=== PATIENT | male | born 1935 | race Caucasian/White ===

== ENCOUNTER → 2016-10-22 | Outpatient (CLI) | payer MEDICARE | END | disposition home or self-care (01) | LOC: PCVCCLINIC 11:25 | PROVIDERS: ATTEND Internal Medicine | DX: I25.10 Atherosclerotic heart disease of native coronary artery without angina pectoris (principal); I35.0 Nonrheumatic aortic (valve) stenosis; E78.5 Hyperlipidemia, unspecified; I10 Essential (primary) hypertension; I65.29 Occlusion and stenosis of unspecified carotid artery; E11.9 Type 2 diabetes mellitus without complications; K55.1 Chronic vascular disorders of intestine | CPT/HCPCS: 80061; 93005; G0463 ==

== ENCOUNTER → 2017-03-05 | Outpatient (CLI) | payer MEDICARE | END | disposition home or self-care (01) | LOC: PCVCCLINIC 15:02 | PROVIDERS: ATTEND Internal Medicine | DX: I25.10 Atherosclerotic heart disease of native coronary artery without angina pectoris (principal); I71.01 Dissection of thoracic aorta; I65.23 Occlusion and stenosis of bilateral carotid arteries; I10 Essential (primary) hypertension; E78.00 Pure hypercholesterolemia, unspecified; E11.9 Type 2 diabetes mellitus without complications; M19.90 Unspecified osteoarthritis, unspecified site; I51.7 Cardiomegaly; Z95.4 Presence of other heart-valve replacement; Z79.82 Long term (current) use of aspirin; Z79.84 Long term (current) use of oral hypoglycemic drugs | CPT/HCPCS: 93005; G0463 ==

== ENCOUNTER → 2017-06-03 | Outpatient (CLI) | payer MEDICARE | END | disposition home or self-care (01) | LOC: PCVCCLINIC 16:22 | PROVIDERS: ATTEND Internal Medicine | DX: I65.23 Occlusion and stenosis of bilateral carotid arteries (principal); I10 Essential (primary) hypertension; E11.9 Type 2 diabetes mellitus without complications; Z95.3 Presence of xenogenic heart valve; Z79.82 Long term (current) use of aspirin; Z79.84 Long term (current) use of oral hypoglycemic drugs; Z79.899 Other long term (current) drug therapy | CPT/HCPCS: 80061; 93005; G0463 ==

== ENCOUNTER → 2017-12-03 | Outpatient (CLI) | payer MEDICARE | END | disposition home or self-care (01) | LOC: PCVCCLINIC 10:35 | DX: I25.10 Atherosclerotic heart disease of native coronary artery without angina pectoris (principal); I71.01 Dissection of thoracic aorta; E78.5 Hyperlipidemia, unspecified; I65.23 Occlusion and stenosis of bilateral carotid arteries; I10 Essential (primary) hypertension; E11.9 Type 2 diabetes mellitus without complications; Z95.3 Presence of xenogenic heart valve | CPT/HCPCS: 80061; 93005; G0463 ==

== ENCOUNTER → 2017-12-12 | Outpatient (CLI) | payer MEDICARE | END | disposition home or self-care (01) | LOC: PCVCIMAG 11:26 | DX: I25.10 Atherosclerotic heart disease of native coronary artery without angina pectoris (principal); I10 Essential (primary) hypertension; I71.00 Dissection of unspecified site of aorta | CPT/HCPCS: 93306 ==

== ENCOUNTER → 2018-05-26 | Outpatient (CLI) | payer MEDICARE | END | disposition home or self-care (01) | LOC: PCVCCLINIC 11:25 | PROVIDERS: ATTEND Internal Medicine | DX: I25.10 Atherosclerotic heart disease of native coronary artery without angina pectoris (principal); R94.31 Abnormal electrocardiogram [ECG] [EKG]; I71.01 Dissection of thoracic aorta; E78.5 Hyperlipidemia, unspecified; I65.23 Occlusion and stenosis of bilateral carotid arteries; I10 Essential (primary) hypertension; E11.9 Type 2 diabetes mellitus without complications; M19.90 Unspecified osteoarthritis, unspecified site; E78.00 Pure hypercholesterolemia, unspecified; Z79.4 Long term (current) use of insulin; Z79.82 Long term (current) use of aspirin; Z79.899 Other long term (current) drug therapy | CPT/HCPCS: 80061; 93005; G0463 ==

== ENCOUNTER → 2018-11-25 | Outpatient (CLI) | payer MEDICARE ==
--- NOTE | 2018-11-25 10:22 | PCVCIMAG ---
APPROVED REPORT Study performed: 11/25/2018 08:42:32 EXAM: Comprehensive 2D, Doppler, and color-flow Echocardiogram Patient Location: Echo lab Status: routine BSA: 1.86 HR: 54 bpmBP: 138/62 mmHg Rhythm: Bradycardia Other Information Study Quality: Adequate Indications CAD aortic dissection repair, aortic valve repair 2D Dimensions IVSd: 13.19 (7-11mm)LVOT Diam: 26.54 (18-24mm) LVDd: 31.86 mm PWd: 12.19 (7-11mm)Ascending Ao: 36.08 (22-36mm) LVDs: 24.50 (25-40mm) Left Atrium: 40.39 (27-40mm) Aortic Root: 35.80 mm LV Single Plane 4CH: 64.57 % LV Single Plane 2CH: 64.83 % Biplane EF: 64.8 % Volumes Left Atrial Volume (Systole) Single Plane 4CH: 50.31 mLSingle Plane 2CH: 69.15 mL LA ESV Index: 34.00 mL/m2 Aortic Valve AoV Peak Ojn.: 2.47 m/s AO Peak Gr.: 24.40 mmHgLVOT Max P.56 mmHg AO Mean Gr.: 13.58 mmHgLVOT Mean P.71 mmHg AO V2 Mean: 1.72 m/sLVOT Max V: 0.94 m/s AO V2 VTI: 50.10 cmLVOT Mean V: 0.60 m/s JOSE (VTI): 2.51 [id number] V1 VTI: 22.73 cm JOSE Vmax: 2.11 cm2 SV (LVOT): 125.65 mL Mitral Valve E/A Ratio: 0.9 MV Decel. Time: 350.50 ms MV E Max Jon.: 0.57 m/s MV A Jon.: 0.66 m/s IVRT: 128.03 ms Pulmonary Valve PV Peak Jon.: 0.81 m/sPV Peak Gr.: 2.62 mmHg Pulmonary Vein P Vein S: 0.24 m/sP Vein A: 0.23 m/s P Vein D: 0.39 m/sP Vein A Dur.: 100.3 msec P Vein S/D Ratio: 0.62 Tricuspid Valve TR Peak Jon.: 2.14 m/s TR Peak Gr.: 18.32 mmHg Left Ventricle The left ventricle is normal size. There is normal LV segmental wall motion. Mild concentric left ventricular hypertrophy. Left ventricular systolic function is normal. The left ventricular ejection fraction is within the normal range. LVEF is 65%. Mild diastolic dysfunction is present (impaired relaxation pattern). Right Ventricle The right ventricle is normal size. The right ventricular systolic function is normal. Atria The left atrium size is normal. The right atrium size is normal. 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 No aortic regurgitation is present. There is no aortic valvular stenosis. Calculated aortic valve area is 2.1 cm2 with maximum pressure gradient of 24 mmHg and mean pressure gradient of 14 mmHg. Mitral Valve The mitral valve is normal in structure. There is no mitral valve regurgitation noted. No evidence of mitral valve stenosis. Tricuspid Valve The tricuspid valve is normal in structure. Trace tricuspid regurgitation with PAP of 25 mmHg. Pulmonic Valve The pulmonary valve is normal in structure. There is no pulmonic valvular regurgitation. Great Vessels The aortic root is normal in size. IVC is normal in size and collapses >50% with inspiration. Pericardium There is no pericardial effusion. There is no pleural effusion. <Conclusion> Left ventricular systolic function is normal. There is normal LV segmental wall motion. LVEF is 65%. 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 Calculated aortic valve area is 2.1 cm2 with maximum pressure gradient of 24 mmHg and mean pressure gradient of 14 mmHg. No aortic regurgitation is present. The mitral valve is normal in structure. No mitral valve regurgitation noted. Trace tricuspid regurgitation with pulmonary artery pressure of 25 mmHg. There is no pericardial effusion.
== END | disposition home or self-care (01) ==
LOC: PCVCIMAG 08:38
PROVIDERS: ATTEND Internal Medicine
DX: I25.10 Atherosclerotic heart disease of native coronary artery without angina pectoris (principal); I71.01 Dissection of thoracic aorta; E78.5 Hyperlipidemia, unspecified; I65.23 Occlusion and stenosis of bilateral carotid arteries; I10 Essential (primary) hypertension; E11.9 Type 2 diabetes mellitus without complications; E78.00 Pure hypercholesterolemia, unspecified; Z95.3 Presence of xenogenic heart valve; Z79.82 Long term (current) use of aspirin
CPT/HCPCS: 36415; 80061; 93005; 93306; G0463

== ENCOUNTER → 2019-06-15 | Outpatient (CLI) | payer MEDICARE | END | disposition home or self-care (01) | LOC: PCVCCLINIC 16:21 | PROVIDERS: ATTEND Internal Medicine | DX: I25.10 Atherosclerotic heart disease of native coronary artery without angina pectoris (principal); I10 Essential (primary) hypertension; E78.5 Hyperlipidemia, unspecified; I65.23 Occlusion and stenosis of bilateral carotid arteries; E11.9 Type 2 diabetes mellitus without complications; I71.01 Dissection of thoracic aorta; Z95.3 Presence of xenogenic heart valve; Z90.49 Acquired absence of other specified parts of digestive tract; Z83.3 Family history of diabetes mellitus; Z82.49 Family history of ischemic heart disease and other diseases of the circulatory system; Z79.82 Long term (current) use of aspirin; Z79.899 Other long term (current) drug therapy | CPT/HCPCS: 93005; G0463 ==